=== PATIENT | male | born 1945 | race Caucasian/White ===

== ENCOUNTER 2016-10-31 15:01 | Outpatient (CLI) | payer MEDICARE, OTHER | END 2016-10-31 15:02 | LOC: LAB 15:01 | PROVIDERS: ATTEND Family Medicine | DX: Z00.00 Encounter for general adult medical examination without abnormal findings (principal); R53.83 Other fatigue; E11.9 Type 2 diabetes mellitus without complications | CPT/HCPCS: 36415; 82306; 83036; 84439; 84443; 84481; 86803 ==

== ENCOUNTER 2016-11-25 19:11 | Emergency (ER) | payer MEDICARE, OTHER ==
[2016-11-25] MEDS ORDERED: 0.9 % SODIUM CHLORIDE 1,000 ML IV ONE ×2 (20:17)
[2016-11-25 20:34] LABS: BASOPHILS % 0.8 (0.0-1.5); EOSINOPHILS % 1.5 % (0.0-6.8); MEAN CORPUSCULAR HEMOGLOBIN 31.5 pg (28.0-34.0); MEAN CORPUSCULAR VOLUME 94.9 fl (80.0-100.0); MONOCYTES % 3.7 % (0.0-11.0)
[2016-11-25 20:39] LABS: eGFR (African) > 60; eGFR (Non-African) > 60
[2016-11-25] MEDS ORDERED: MAGNESIUM CITRATE 296 ML BOTTLE PO ONE (20:49)
--- NOTE | 2016-11-25 20:56 | ED Physician Documentation ---
General Adult - HISTORIAN Historian: patient - HPI Stated Complaint: abd pain, no urination all day Chief Complaint: General Adult Additional Information: Bilateral low abdominal pain. Feels like pressure to urinate, defecate. No urine output since 0500 today. Last normal bowel movement 11/23. Hasn't burped or passed gas for two days. Fleets suppository earlier this evening w/o results. Feels like he needs to defecate but can't. - ROS CONST: no problems - PAST HX Past History: AMI, hypertension, other (NIDDM) Surgeries/Procedures: cardiac bypass, other (knee arthroscopy) Allergies/Adverse Reactions: Allergies Allergy/AdvReac Type Severity Reaction Status Date / Time Penicillins Allergy Verified 11/25/16 19:43 Home Medications: Ambulatory Orders Medication Instructions Recorded Aspirin [Goran] 81 mg PO DAILY 11/25/16 Bupropion HCl [Wellbutrin Xl] 300 mg PO QDAY 11/25/16 Clonidine HCl [Catapres] 0.2 mg PO QDAY 11/25/16 Gabapentin [Neurontin] 300 mg PO BID 11/25/16 Losartan/Hydrochlorothiazide 1 each PO QDAY 11/25/16 [Hyzaar 100-25 Tablet] Metoprolol Tartrate [Lopressor] 50 mg PO BID 11/25/16 Nifedipine [Procardia] 90 mg PO QDAY 11/25/16 Simvastatin [Zocor] 40 mg PO HS 11/25/16 Sitagliptin Phos/Metformin HCl 1 tab PO BID 11/25/16 [Janumet 50-500 mg Tablet] Sitagliptin Phos/Metformin HCl 1 tab PO BID 11/25/16 [Janumet 50-500 mg Tablet] - SOCIAL HX Smoking History: non-smoker Alcohol Use: none - FAMILY HX Family History: No - VITAL SIGNS Vital Signs: Vital Signs Temp Pulse Resp BP Pulse Ox 97.8 F 74 16 164/75 93 11/25/16 19:20 11/25/16 19:20 11/25/16 19:20 11/25/16 19:20 11/25/16 19:20 - REVIEWED ASSESSMENTS Nursing Assessment Reviewed: Yes Vitals Reviewed: Yes Progress - Progress Progress: Chest and obstructive series, total 4 views Clinical history: Urinary retention, abdominal pain and dyspnea Mild cardiomegaly with atherosclerotic thoracic aorta and status post CABG. No acute infiltrates or pleural effusion. Vascular calcification with mild fecal retention. No bowel obstruction. No significantly distended bladder. Impression: Atherosclerotic thoracic aorta without acute infiltrate or pleural effusion Mild fecal retention without bowel obstruction No significant distended bladder Electronically signed on November 25, 2016 8:22:25 PM CDT by: Micah Trevino Bui inserted with ease, per nurse. 725 ml urine out. Labs ok. Will dc bui. Home with mag citrate. ED Results Lab/Radiology - Orders Orders: ED Orders Category Date Time Status Further Nursing Orders 1T Care 11/25/16 19:30 Ordered Urinary catheterization 1T Care 11/25/16 19:29 Ordered ABD SERIES PA CHEST [RAD] Stat Exams 11/25/16 Ordered CBC/PLATELET/DIFF Routine Lab 11/25/16 Ordered CMP Routine Lab 11/25/16 Ordered URINALYSIS Routine Lab 11/25/16 Ordered General Adult Physical Exam - PHYSICAL EXAM GENERAL APPEARANCE: mild distress EENT: eye inspection normal, ENT inspection normal, pharynx normal NECK: normal inspection, supple RESPIRATORY: no resp distress, breath sounds normal CVS: reg rate & rhythm, heart sounds normal ABDOMEN: soft, normal bowel sounds RECTAL: deferred BACK: normal inspection, no CVA tenderness, other (no vertebral tenderness) SKIN: warm/dry, normal color EXTREMITIES: normal range of motion (gait), no evidence of injury, no edema NEURO: CN's nml as tested, motor nml, sensation nml Discharge Clincal Impression: Urinary retention Constipation Qualifiers: Constipation type: unspecified constipation type Qualified Code(s): K59.00 - Constipation, unspecified Referrals: Ayanna Lee MD [Primary Care Provider] - 2 Days Additional Instructions: Return to the ER with inability to urinate of 8 hours, increased abdominal pain , or fever. Drink half the bottle of mag citrate when you get home. If no bowel movement in two hours, drink the second half. Drink more water. Home Medications: Ambulatory Orders Aspirin [Goran] 81 mg PO DAILY 11/25/16 Bupropion HCl [Wellbutrin Xl] 300 mg PO QDAY 11/25/16 Clonidine HCl [Catapres] 0.2 mg PO QDAY 11/25/16 Gabapentin [Neurontin] 300 mg PO BID 11/25/16 Losartan/Hydrochlorothiazide [Hyzaar 100-25 Tablet] 1 each PO QDAY 11/25/16 Metoprolol Tartrate [Lopressor] 50 mg PO BID 11/25/16 Nifedipine [Procardia] 90 mg PO QDAY 11/25/16 Simvastatin [Zocor] 40 mg PO HS 11/25/16 Sitagliptin Phos/Metformin HCl [Janumet 50-500 mg Tablet] 1 tab PO BID 11/25/16 Sitagliptin Phos/Metformin HCl [Janumet 50-500 mg Tablet] 1 tab PO BID 11/25/16 Condition: Good Disposition: 01 HOME, SELF-CARE Decision to Admit: NO Decision Time: 20:54
[2016-11-25 21:34] VITALS: BP 160/89
[2016-11-26 05:32] LABS: APPEARANCE,URINE CLEAR (CLEAR); COLOR,URINE YELLOW (YELLOW)
[2016-11-26 05:33] LABS: OCCULT BLOOD,URINE NEGATIVE (NEGATIVE); UROBILINOGEN URINE 0.2 Eu (0.2-1.0)
--- NOTE | 2016-11-26 06:00 | Diagnostic Imaging Report ---
JOSELINE NUNN~ [facility] [address] [facility] [address] [place], [place]. [address] ~ ~ ~ ~ Report Submission Date: November 25, 2016 8:22:25 PM CDT Patient ~ Study Name: OBDULIO CAR ~ Date: November 25, 2016 7:46:59 PM CDT ~ Modality Type: CR Gender: M ~ Description: ABDOMEN : 43 ~ Institution: [facility] Physician: JOSELINE NUNN ~ ~ ~ ~ Chest and obstructive series, total 4 views Clinical history: Urinary retention, abdominal pain and dyspnea Mild cardiomegaly with atherosclerotic thoracic aorta and status post CABG. No acute infiltrates or pleural effusion. Vascular calcification with mild fecal retention. No bowel obstruction. No significantly distended bladder. Impression: Atherosclerotic thoracic aorta without acute infiltrate or pleural effusion Mild fecal retention without bowel obstruction No significant distended bladder ~ Electronically signed on November 25, 2016 8:22:25 PM CDT by: Micah MORE
== END 2016-11-25 21:20 | disposition home or self-care (01) ==
LOC: ED 19:11
DX: R33.9 Retention of urine, unspecified (principal); K59.00 Constipation, unspecified
CPT/HCPCS: 74022; 80053; 81002; 85025; J7030; 96360; 96361; 99283; S1016

== ENCOUNTER 2017-05-23 10:09 | Outpatient (CLI) | payer MEDICARE, OTHER ==
[2017-05-23 11:06] LABS: eGFR (African) > 60; eGFR (Non-African) > 60
[2017-05-23 22:51] LABS: VITAMIN D, 25-HYDROXY 34 ng/mL (30-100)
== END 2017-05-23 11:30 ==
LOC: LAB 10:09
PROVIDERS: ATTEND Family Medicine
DX: E11.9 Type 2 diabetes mellitus without complications (principal); R53.83 Other fatigue; E55.9 Vitamin D deficiency, unspecified; Z12.5 Encounter for screening for malignant neoplasm of prostate
CPT/HCPCS: 36415; 80053; 80061; 82043; 82306; 82607; 83036; 84153; 84439; 84443; 84481; 86376; 86800

== ENCOUNTER 2017-11-01 13:09 | Outpatient (CLI) | payer MEDICARE, OTHER ==
[2017-11-01 13:51] LABS: eGFR (African) > 60; eGFR (Non-African) > 60
== END 2017-11-01 13:10 ==
LOC: LAB 13:09
PROVIDERS: ATTEND Family Medicine
DX: E11.9 Type 2 diabetes mellitus without complications (principal)
CPT/HCPCS: 36415; 80053; 83036

== ENCOUNTER 2018-03-22 08:04 | Outpatient (CLI) | payer MEDICARE, OTHER ==
[2018-03-22 08:59] LABS: eGFR (Non-African) > 60
== END 2018-03-22 08:05 ==
LOC: LAB 08:04
PROVIDERS: ATTEND Family Medicine
DX: E11.9 Type 2 diabetes mellitus without complications (principal); I10 Essential (primary) hypertension; R53.83 Other fatigue; I25.10 Atherosclerotic heart disease of native coronary artery without angina pectoris
CPT/HCPCS: 36415; 80053; 80061; 83036; 84439; 84443; 84481

== ENCOUNTER 2019-05-08 10:15 | Outpatient (CLI) | payer MEDICARE, OTHER ==
[2019-05-08 10:57] LABS: BASOPHILS % 0.4 % (0.0-1.5); NEUTROPHILS # 4.2 # k/uL (1.4-7.7)
[2019-05-08 13:15] LABS: eGFR (Non-African) 44
[2019-05-08 13:17] LABS: A1C 5.9 % (<5.7); HDL 48 mg/dL (>40)
== END 2019-05-08 10:20 ==
LOC: LAB 10:15
PROVIDERS: ATTEND Family Medicine
DX: I10 Essential (primary) hypertension (principal); E11.9 Type 2 diabetes mellitus without complications; I25.10 Atherosclerotic heart disease of native coronary artery without angina pectoris; E55.9 Vitamin D deficiency, unspecified; R39.11 Hesitancy of micturition; R53.83 Other fatigue
CPT/HCPCS: 36415; 80053; 80061; 82043; 82306; 82607; 83036; 83735; 84153; 84439; 84443; 84481; 85025; 86141

== ENCOUNTER 2019-05-29 12:38 | Outpatient (CLI) | payer MEDICARE, OTHER ==
[2019-05-29 14:18] LABS: eGFR (Non-African) 53
== END 2019-05-29 12:43 ==
LOC: LAB 12:38
PROVIDERS: ATTEND Family Medicine
DX: R79.89 Other specified abnormal findings of blood chemistry (principal)
CPT/HCPCS: 36415; 80048